=== PATIENT | male | born 1985 | race Caucasian/White ===

== ENCOUNTER 2021-05-24 07:12 | Day surgery (SDC) | payer OTHER ==
[2021-05-24] VITALS (192 sets, daily range): BP systolic 89–142; BP diastolic 44–102
--- NOTE | 2021-05-24 07:15 | NUR ---
Pt arrives ambulatory to the floor with brother, oriented to room and clal light system. respirations even and unlabored, vss. pt pleasant and cooperative.labs drawn and ekg performed. initiated iv.
[2021-05-24 07:49] LABS: HEMATOCRIT 47.6 % (39.0-50.0); HEMOGLOBIN 15.5 g/dl (14.0-18.0); IMMATURE GRANULOCYTES 0.4 % (0.0-5.0); MEAN CELL VOLUME 90.2 fL CALC (80.0-100.0); MEAN CORPUSCULAR HGB 29.4 pG CALC (26.0-32.0); MEAN CORPUSCULAR HGB CONC 32.6 g/dL CAL (32.0-36.0); NEUT# 4.24 thou/uL (1.82-7.42); RED BLOOD COUNT 5.28 mill/uL (4.70-6.10); RED CELL DISTRI WIDTH 12.5 % (11.5-15.5)
[2021-05-24 08:07] LABS: ALBUMIN 4.6 g/dL (3.2-5.0); ALKALINE PHOSPHATASE 84 u/l (38-126); ANION GAP 12 (6-22 (CALC)); BILIRUBIN, TOTAL 0.3 mg/dL (0.0-1.4); BUN 17 mg/dL (9-20); BUN/CREATININE RATIO 17 (12-20 (CALC)); CARBON DIOXIDE 30 mmol/l (22-30); CHLORIDE 102 mmol/l (95-108); GFR > 60 ML/MIN (>=60 (CALC)); GFR FOR AFR.AMER. > 60 ML/MIN (>=60 (CALC)); POTASSIUM 4.4 mmol/l (3.5-5.1); SGOT/AST 25 u/l (17-59); SODIUM 140 mmol/l (137-146); TOTAL PROTEIN 7.5 g/dL (6.3-8.2)
--- NOTE | 2021-05-24 11:15 | NUR ---
Induction Note Patient to [facility] procedure room. Time out performed at 1116. Patient placed on monitors, Teresa hugger, bilateral wrist restraints applied for ET tube protection. Versed 5mg given IV push at 1118 Tourniquet applied to rt arm Lidocaine 100mg given [id number] IV push followed by Rocoronium 10mg at 1119 IV push and held for 90 seconds. Propofol bolus of 120mg given at 1122 IV push. Succinylcholine 80mg given IV push at 1123. Smooth intubation with 7.5 ETT. Positive CO2. Positive Auscultation for air exchange. Patient placed on ventilator for spontaneous ventilation. Placed on Propofol IV drip at 58ml/hr . OG inserted. Positive air on auscultation. Positive gastric content. Stomach washed at this time. Naltrexone 75 mg given via OG tube with Clonidine 0.3 mg given via OG Tube. OG clamped for 45 minutes. Will monitor patient for symptoms of withdrawal and adjust propfol accordingly.
--- NOTE | 2021-05-24 11:45 | NUR ---
OG close note Stomach washed at this time. Naltrexone 75 mg with Clonidine 0.2 mg via OG tube. OG will be clamped for 45 minutes.
--- NOTE | 2021-05-24 12:20 | NUR ---
CLONIDINE 0.2MG IV ORDERED FOR ELEVATED BP.WILL CONTINUE TO MONITOR.
--- NOTE | 2021-05-24 12:30 | NUR ---
OG open note OG open at this time. Gastric content draining into drainage bag. OG to drain for 45 minutes. Propofol will be titrated down based on patient.
--- NOTE | 2021-05-24 13:15 | NUR ---
OG close note Stomach washed at this time. Naltrexone 50 mg with Clonidine 0.3 mg via OG tube. OG will be clamped for 45 minutes.
--- NOTE | 2021-05-24 17:35 | NUR ---
Extubation note Closing medications given Benadryl 50mg IV push, Decadron 10mg IV push,Magnesium 4 grams IV, Zofran 8mg IV push, Octreotide 100mcg SC. Stomach washed out prior to extubation. Suctioned gastric content. OG removed. Patient extubated. Propofol Discontinued. Wrist restraints removed. Teresa hugger Removed. See [facility] Moderate sedate recovery record for further notes and assessment.
--- NOTE | 2021-05-24 17:58 | NUR ---
transported to sc in stable condition bt MS nurse. Resp even and unlabored.
--- NOTE | 2021-05-24 18:40 | NUR ---
RECEIVED REPORT FROM CLARIBEL FIGUEROA.
--- NOTE | 2021-05-24 18:41 | NUR ---
PT ARRIVED TO [facility] ROOM 284 VIA BED ACCOMPAINED BY [facility] STAFF. VSS. RESPIRATIONS EVEN AND UNLABORED. VITALS OBTAINED. VSS. NO SIGNS OF DISTRESS. ALL SAFTEY PRECAUTIONS IN PLACE WITH CALL LIGHT IN REACH AND BED ALARM ACTIVE.
--- NOTE | 2021-05-24 20:00 | NUR ---
PT AWAKE; A&O X3. EVEN AND UNLABORED RESPIRATIONS; CLEAR LUNG SOUNDS UPON AUSCULTATION. HYPOACTIVE BOWEL SOUNDS X4 QUADRANTS. SKIN IS INTACT. IV SITES HEALTHY AND PATENT. BED ALARM AND SAFETY PRECAUTIONS IN PLACE. CALL LIGHT WITHIN REACH.
--- NOTE | 2021-05-25 00:11 | NUR ---
PT ASSISTED TO BATHROOM. PT BACK TO BED. NO DISTRESS NOTED. PT DENIES PAIN AT THE MOMENT. BED ALARM AND SAFETY PRECAUTIONS IN PLACE. CALL LIGHT WITHIN REACH.
[2021-05-25 03:54] VITALS: BP 113/66
--- NOTE | 2021-05-25 04:20 | NUR ---
PT SITTING IN BED IN LOW NEGRETE'S POSITION. PT IS MORE ALERT. ADMINISTERED SCHEDULED MEDICATIONS PER EMAR. BED ALARM AND SAFETY PRECAUTIONS IN PLACE WITH CALL LIGHT IN REACH.
[2021-05-25 05:41] LABS: IMMATURE GRANULOCYTES 0.8 % (0.0-5.0); MEAN CELL VOLUME 87.4 fL CALC (80.0-100.0); MEAN CORPUSCULAR HGB 29.8 pG CALC (26.0-32.0); MEAN CORPUSCULAR HGB CONC 34.1 g/dL CAL (32.0-36.0); NEUT# 13.27 thou/uL (1.82-7.42); RED BLOOD COUNT 4.7 mill/uL (4.70-6.10); RED CELL DISTRI WIDTH 12.3 % (11.5-15.5)
[2021-05-25 05:56] LABS: HEMATOCRIT 41.1 % (39.0-50.0)
[2021-05-25 06:11] LABS: ALBUMIN 4.1 g/dL (3.2-5.0); ALKALINE PHOSPHATASE 85 u/l (38-126); BUN 17 mg/dL (9-20); BUN/CREATININE RATIO 21 (12-20 (CALC)); CHLORIDE 104 mmol/l (95-108); CREATININE 0.8 mg/dL (0.7-1.3); GFR > 60 ML/MIN (>=60 (CALC)); GFR FOR AFR.AMER. > 60 ML/MIN (>=60 (CALC)); SGOT/AST 25 u/l (17-59); SODIUM 137 mmol/l (137-146); TOTAL PROTEIN 6.7 g/dL (6.3-8.2)
[2021-05-25 06:15] LABS: ANION GAP 16 (6-22 (CALC)); BILIRUBIN, TOTAL 0.7 mg/dL (0.0-1.4); CARBON DIOXIDE 21 mmol/l (22-30)
--- NOTE | 2021-05-25 07:30 | NUR ---
REPORT RECEIVED FROM DAE LADD. PATIENT IS SLEEPING IN BED WITH NO DISTRESS NOTED. CALL LIGHT IN REACH.
[2021-05-25 08:15] VITALS: BP 109/65
--- NOTE | 2021-05-25 08:19 | NUR ---
PATIENT EAT HIS BREAKFAST. ASSESSMENT DONE. PATIENT IS ALERT AND ORIENT X2 BUT SLEEPY. PATIENT STATED HE IS COLD. CHECK PATIENT TEMP 100.5 AND MEDICATED PATIENT WITH TYLENOL. PATIENT TOOK SIPS OF WATER. RESPS EVEN AND UNLABORED. PATIENT DENIES ANY OTHER NEEDS AT THIS TIME. SAFETY PRECAUTIONS REINFORCED AND CALL LIGHT IN REACH.
--- NOTE | 2021-05-25 09:08 | NUR ---
NOTIFY DR. HERNANDEZ ABOUT PATIENT TEMP 100.5. NO NEW ORDERS RECEIVED AT THIS TIME.
[2021-05-25 10:14] VITALS: BP 114/68
--- NOTE | 2021-05-25 11:35 | NUR ---
SETUP PATIENT FOR LUNCH AND PO FLUIDS PROVIDED. PATIENT DENIES ANY OTHER NEEDS AT THIS TIME. CALL LIGHT IN REACH.
--- NOTE | 2021-05-25 14:21 | NUR ---
AMBULATED WITH PATIENT IN THE HALLWAYS AND PATIENT STILL FEELS UNSTEADY AT TIMES. THEN BACK TO ROOM. PATIENT NOW SITTING IN THE RECLINER PROVIDED A WARM BLANKET PER PATIENT REQUEST. PO FLUIDS PROVIDED. PATIENT DENIES ANY OTHER NEEDS AT THIS TIME. CALL LIGHT IN REACH.
--- NOTE | 2021-05-25 15:00 | NUR ---
PATIENT IS RESTING IN THE RECLINER WITH NO DISTRESS NOTED AND CALL LIGHT IN REACH.
[2021-05-25 15:30] VITALS: BP 118/69
--- NOTE | 2021-05-25 16:31 | NUR ---
Discharge instructions given. Patient verbalizes understanding of same. Discharged in stable condition via Ambulatory to Home with family AND [facility] STAFF. All belongings sent with pt.
== END 2021-05-25 16:31 | disposition home or self-care (01) | DRG 897 ==
LOC: ANR 07:12 → MS2 07:13 → ANR 12:41
PROVIDERS: ATTEND Anesthesiology
DX: F11.20 Opioid dependence, uncomplicated (principal)
CPT/HCPCS: J2354